=== PATIENT | female | born 1960 | race Caucasian/White ===

== ENCOUNTER 2024-07-24 06:24 | Day surgery (SDC) | payer OTHER, SELFPAY ==
[2024-07-18 13:50] VITALS: BMI 21.9
--- NOTE | 2024-07-23 22:46 | W.CON.GYNONC ---
Chief Complaint
-
abdominal wall mass
History of Present Illness
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
Oncology history:
March 06, 2021 ex lap JESUS/BSO low anterior resection omentectomy pelvic and periaortic lymph node dissection optimal tumor
debulking. 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
sigmoid colon and posterior cul�de�sac
Patient received chemotherapy with Taxol and carboplatin x 6 cycles, started niraparib maintenance
June 11, 2022, lower abdominal wall tumor implant, resected completely. Continued niraparib maintenance
Fall 2022, patient was diagnosed with progression of disease involving left lower quadrant pelvis as well as recurrent abdominal wall
tumor implant. She was treated with Gemzar, carboplatin and bevacizumab. After cycle 2 developed hypersensitivity reaction to
carboplatin. She received 3 cycles of carboplatin desensitization at [facility], however had anaphylactic reaction with the
last cycle.
Interval History
Patient reports overall to be doing well, denies any nausea vomiting fever chills. GI review of system is essentially negative. I note
that the patient is complaining of further irritation of skin in the suprapubic area secondary to tumor implant. She continues to work
full�time.
��������������������
October 12, 2023
Patient has met with Dr. Jabier Thacker and radiation oncology, she is starting radiation treatment to suprapubic subcutaneous
nodule as well as left lower quadrant nodule, 10 fractions are planned.
12/07/2023� Patient�has�completed�her�10�fractions�of�radiation�to�suprapubic�skin�and�subcutaneous�metastasis�as�well�as�left�lower�quadrant
metastasis.�She�has�been�doing�well�and�denies�any�nausea�vomiting�fever�chills�bladder�and�bowel�functions�are�within�normal limits.�She�did�experience�some�diarrhea�with�radiation�therapy. ������������������������ 02/08/24
This�patient�returns�back�to�the�office�for�follow�up,�she�is�doing�well�and�denies�any�nausea�vomiting�fever�chills,�she�continues�to
have�some�intermittent�diarrhea�secondary�to�side�effects�of�radiation�therapy.�She�has�been�seen�by�her�medical�oncologist�Dr. Morginstin�recently.
She�had�a�CT�chest�abdomen�and�pelvis�at�[facility],�the�left�lower�peritoneal�metastasis�appears�to�be�stable,�it�continues
to�measure�2.2�cm,�there�is�a�slight�enlargement�in�the�right�pelvic�sidewall�lymph�node�from�8�mm�to�13�mm�significance�of�which
is�unclear.�Abdominal�wall�subcutaneous�metastasis�is�1.9�cm�essentially�stable�in�size�but�it�shows�central�low�attenuation suggesting�treatment�effect. ����������������������������� 05/02/24
patient�returns�today�for�follow�up�She�is�doing�well,�no�complaints.�She�did�see�her�med/onc�Dr�Morginstin�yesterday�and�he�wrote
for�her�prescription�of�letazole.�She�did�have�a�recent�ct�scan�which�is�stable�.�She�is�did�for�a�[employer]�draw�but�is�having difficulty�scheduling.
07/09/24 Patient�presents�to�the�office�today�for�follow�up,�over�the�course�of�last�month�she�has�noted�increased�size�of�the�nodule�in�the
lower�abdomen�along�the�midline�just�above�mons�pubis.�Previously�she�had�radiation�in�this�area.�She�remains�on�letrozole�the area�has�started�just�having�some�discharge�and�bleeding
Allergies erythromycin�base,�Penicillins
Medications I
chlorthalidone�25�mg�tablet 1�p.o.�q.�day Y
letrozole�2.5�mg�tablet 1�p.o.�q.�day
losartan�100�mg�tablet 1�p.o.�q.�day s
pironolactone�25�mg�tablet 1�p.o.�q.�day
Social�History Former�Smoker.�Packs�per�day�1�ppd�.�Year�Quit�2021.�Approximate�years�smoked�40. Marital�Status:�Patient�is�single Gynecological�History Age�at�Menarche�12�years.�Age�at�menopause:�48�years.�Patient�reports�0�pregnancies.
No�history�of�hormone�replacement�therapy.
Medical History
Allergies
Allergies reflect when allergies were last updated in [facility].
carboplatin Allergy (Verified 07/19/24 10:33)
Anaphylaxis
erythromycin base Allergy (Verified 07/19/24 10:33)
Hives
Penicillins Allergy (Verified 07/23/24 18:07)
Keflex is ok
pollen extracts Allergy (Verified 07/19/24 10:33)
seasonal allergies
Physical Exam
Physical Exam
Pelvic�Examination: External�normal�labia,�urethra,�anus.� Vagina:�Normal�mucosa. Adnexa:�No�pelvic�mass.� RVE:�no�masses�or�nodularity General:�Well�developed,�well�nourished�patient.�In�no�acute�distress. Head:�Atraumatic�and�normocephalic.
Eyes:�EOMI.�Sclerae�are�anicteric. Ears,�Nose,�Throat,�and�Mouth:�Normal�oral�mucosa�and�oropharynx. Neck:�No�thyromegaly.�No�cervical�lymphadenopathy. Lungs:�Clear�to�auscultation.�Good�air�movement�bilaterally.
Cardiac:�Regular�rate.�Regular�rhythm.�No�murmurs�appreciated. Abdomen:�Abdomen�is�soft.�Non�tender�to�palpation.�Non�distended.� There�is�a�1�tx�2�cm�palpable�mobile�nodule�in�the�subcutaneous�tissue�with�it�is�raised�and�erythematous�in�appearance
Palpation�of�the�abdomen�also�reveals�a�2�cm�nodule�deep�in�the�left�retroperitoneum Extremities:�No�edema. Hematologic/Lymphatic:�No�palpable�lymphadenopathy. Musculoskeletal:�Normal�range�of�motion.�Strength�and�Tone�are�normal.
Skin:Non�jaundiced.�No�petechia.�No�purpura. Neurologic:�Speech�is�fluent.�Normal�gait�and�station.�Cranial�nerves�intact.
Impression / Plan
-
Patient appears to have progression of disease in the skin just above mons pubis
She is scheduled to undergo CT chest abdomen and pelvis tomorrow at [facility]
I am recommending excision of this nodule using an elliptical low transverse incision removing skin and subcutaneous tissue down
to the level of fascia. I have requested her to see Dr. Kraft in plastic surgery, I am hoping that he could assist in closing the skin
incision using a mini abdominoplasty
Obviously if she has progression of disease in other sites we would probably recommend systemic therapy otherwise
She is seeing plastic surgery later today
She has also seen radiation oncology for possible localized treatment as an alternative option
I told her that I will review the CT scan and discuss plans going forward
Patient informs me that her crab picker has recently evaluated her and is concerned about discordant blood pressure into arms. He
is suspecting stenosis and narrowing of subclavian artery. His CT of chest as an angiogram has been ordered and dose will be done
at the same time we will await their recommendation
[2024-07-24] VITALS (8 sets, daily range): BP systolic 112–149; BP diastolic 63–76; BMI 21.9
[2024-07-24] MEDS: CELEBREX 200 MG PO (10:08)
[2024-07-24] MEDS: TYLENOL 1000 MG PO (10:08)
[2024-07-24] MEDS: NEURONTIN 300 MG PO (10:09)
--- NOTE | 2024-07-24 10:12 | PTCARENOTE ---
Patient had a small amount of cream in her coffee this am and stopped drinking it at 0630. Dr. Olivia made aware. No further orders.
--- NOTE | 2024-07-24 10:54 | SUR.OPER ---
Patient overheard telling her brother that staff was pushing her and throwing her belongings around. Patient was not pushed or touched with the exception for inserting her IV line. When patient arrived RN was tyding up patient belongings and put her
shoes which were in a plastic bag into the patients white belonging bag. Patients belongings were being labeled and put into the bag because the belongings were all over the chair and not put away by patient. Asked patient to take her iwatch off and
she angrily removed it and put it on the other wrist. After tying patients bag shut she shouted at RN saying that she does not want her belongings moved and touched. Patient stated that preadmissions said that her watch should go into her shoe.
Apologized to patient and she angrily said again that she felt like staff was coming at her (2 staff members only in room with patient.) Will monitor patient.
[2024-07-24] MEDS: HEPARIN 5000 UNITS SC (11:50)
[2024-07-24] MEDS: NORMOSOL-R/PLASMALYTE-A 1000 IV (11:51)
--- NOTE | 2024-07-24 14:07 | W.IMMPOSTOP ---
Surgical Immed Post Op Note
-
Primary Surgeon: TYLOR Kraft MD
Assisting Surgeon:
Pre-op Diagnosis: Recurrent ovarian cancer
Post-op Diagnosis: Same
Procedure Performed: Excision of skin lesion for margins, adjacent tissue transfer for lower abdominal wall reconstruction
Anesthesia Type: General
Specimen / Cultures: Skin margins
Estimated Blood Loss: 15 cc
Complications: None
Operative Findings: As expected
--- NOTE | 2024-07-24 14:07 | OR.RPT ---
Operative Report
Operative Report
Date of Service: 07/24/24
Surgeon: TYLOR Kraft MD
Preoperative diagnosis: Recurrent ovarian cancer
Postoperative diagnosis: Same
Procedure:
1. Adjacent tissue transfer, trunk, 25 x 20 cm�
2. Skin excision, malignant, 20 cm
Anesthesia: General
Specimens: Abdominal skin margins
Complications: None
EBL: 15 cc
Indication for procedure: Patient is a 64-year-old female with a history of open recurrent ovarian cancer. She had previously undergone radiation and resection. She developed a recurrence in the skin limited to superficial to the fascia. A plan
was made by her surgical oncologist in Dr. Turcios to resect the tumor. A large defect was anticipated. He asked for my assistance in closing this abdominal defect. A plan was made to reconstruct the defect via adjacent tissue transfer using a
supraumbilical skin flap. Risk of the procedure including wound healing issues, umbilical , hematoma, seroma were reviewed at length. Patient consented accordingly and desire to proceed
Procedure detail: Patient was identified preoperatively and the surgical site was confirmed to be the anterior abdomen. All questions were answered and consents were confirmed. Patient was taken back to the operative room placed supine on the
table. Anesthesia was induced and patient was prepped and draped in usual sterile fashion using ChloraPrep solution. Timeout for patient safety was performed was confirmed that preoperative antibiotics have been administered and bilateral SCDs
were placed. Procedure began with Dr. Malone marking out the margins for the tumor resection of the lower abdominal wall. His op report will be dictated separately. Upon conclusion of his resection, I started my portion of the procedure. The
defect was measured and had a width of over 10 cm. Additional margins were then resected to freshen the wound edges and provide another pathological sample for margins. This was over an area of 20 cm along the wound margin. As such a large
adjacent tissue transfer was planned. Due to a prior midline laparotomy scar dissection needed to proceed along the abdominal wall fascia to the level of the xiphoid and costal margin. The umbilicus was floated and as such transected at the base
of the fascia. The resultant defect was oversewn with 2-0 Vicryl's. The area of the adjacent tissue transfer measured 20 cm x 25 cm. Following sufficient flap mobilization to close the lower abdominal wall defect backcut is needed to be performed
and these extended to the ASIS bilaterally. Meticulous hemostasis was then ensured. Bilateral tap blocks were performed with dilute Marcaine. A LISBETH drain was left on the anterior fascia. Sutured in place with a 2-0 Prolene. Patient was then
flexed at the waist and closure was ensured to be without tension. A series of 2-0 Vicryl's were placed in Rui's. Deep dermis was closed with the INSORB stapler and a 3-0 Monocryl was run superficially. Patient tolerated procedure well was
performed out complication all counts were correct. She was extubated taken the PACU for further care.
--- NOTE | 2024-07-24 15:06 | OR.RPT ---
Operative Report
Operative Report
Date of procedure: July 24, 2024
Preoperative diagnosis: Recurrent ovarian cancer with skin metastasis postoperative diagnosis: Same
procedure: Excision of 15 cm skin and subcutaneous tissue lower abdomen
Surgeon: Myke Turcios
Assist: Evan Barrera PA-C
Anesthesia: General LMA intubation
Specimen lower abdominal skin and subcutaneous tissue with suture at 12:00 midline
Complications: None
Estimated blood loss less than 25 cc
Procedure in detail: This patient was taken to the operating room placed in supine position. General anesthesia was administered she was intubated without any difficulty. She was placed in supine position. Hair involving upper genital region was
clipped. Under sterile circumstance Blakely catheter was placed with bladder drainage. The abdomen and upper thighs and mons pubis was prepped with ChloraPrep. Approximately 2 to 3 cm margin was designated overlying a erythematous raised ulcerated
lesion involving lower abdominal skin. I used the electrocautery to remove an elliptical portion of the skin and this was taken down to the level of fascia. We used electrocautery as well as small jaw vessel sealer to seal and divide blood vessels
to this portion of the skin and subcutaneous tissue and the entire specimen was lifted off the fascia. At this point I handed the case over to Dr. Kraft in plastic surgery, who performed closure of the defect. Counts of laps instruments and
needle was correct x 2. I was present and scrubbed for entire procedure as dictated above
Disposition: To PACU, alert awake stable
== END 2024-07-24 16:07 | disposition home or self-care (01) ==
LOC: SDS 06:24
PROVIDERS: ATTENDING PHYSICIAN Obstetrics & Gynecology Gynecologic Oncology; FAMILY PHYSICIAN Family Medicine; OTHER PHYSICIAN Surgery Plastic and Reconstructive Surgery
DX: C79.2 Secondary malignant neoplasm of skin (principal); C56.2 Malignant neoplasm of left ovary
CPT/HCPCS: 11606; 13101; 88307; 36415; 86850; 86900; 86901; 88341; 88342; C1729; C1776

== ENCOUNTER 2024-10-09 12:09 | Inpatient (IN) | payer OTHER, SELFPAY ==
[2024-10-08 16:15] VITALS: BMI 19.4
[2024-10-08 16:21] VITALS: BP 96/66
[2024-10-08 16:43] LABS: % Basophils 0.3 % (0-2); % Eosinophils 0.2 % (0-6); % Immature Granulocytes 0.6 % (0-0.5); % Lymphocytes 3.7 % (20.5-51.1); % Monocytes 5.3 % (1.7-9.3); % Neutrophils 89.9 % (42.2-75.2); Absolute Basophils 0.1 10^3/uL (0-0.2); Absolute Immature Granulocytes 0.1 10^3/uL (0-0.05); Absolute Lymphocytes 0.7 10^3/uL (1.2-3.4); Absolute Neutrophils 16.9 10^3/uL (1.4-6.5); Hematocrit 38.7 % (37.0-47.0); Hemoglobin 13.2 g/dL (12.0-16.0); Mean Corp Hgb Conc. 34.1 g/dL (33.0-37.0); Mean Corpuscular Hgb 32.4 pg (27.0-31.0); Mean Corpuscular Volume 94.9 fL (81.0-99.0); Nucleated Red Blood Cells % 0 %; Platelet Count 429 10^3/uL (130-400); Red Blood Cell Count 4.08 10^6/uL (4.20-5.40); Red Cell Dist. Width 12.7 % (11.5-14.5); White Blood Cell Count 18.8 10^3/uL (4.8-10.8)
[2024-10-08 17:08] LABS: ALT (SGPT) 16 U/L (0-35); AST (SGOT) 33 U/L (14-36); Albumin 4.3 g/dl (3.5-5.0); Alkaline Phosphatase 105 U/L (38-126); Blood Urea Nitrogen 23 mg/dl (7-17); Calcium 10.1 mg/dl (8.4-10.2); Carbon Dioxide 25 mmol/L (22-30); Chloride 102 mmol/L (98-107); Glucose 137 mg/dl (70-99); Lipase 70 U/L (23-300); Potassium 3.9 mmol/L (3.5-5.1); Sodium 134 mmol/L (135-145); Total Bilirubin 0.5 mg/dl (0.2-1.3); Total Protein 6.7 g/dl (6.3-8.2); eGFR > 60.00
--- NOTE | 2024-10-08 21:02 | ED.GENMED ---
History of Present Illness
<Brionna Tee PA-C - Last Filed: 10/09/24 02:27>
General
Chief Complaint: Abdominal Symptoms
Source: patient
Exam Limitations: none
Time Seen by Provider: 10/08/24 21:02
Nursing documentation reviewed up to this point in time: agreed with
History of Present Illness
History of Present Illness:
TIME OF INITIAL EVALUATION
- 21:34
REVIEW OF OLD RECORDS
- Operative report from 07/24/2024 after skin excision for metastatic spread of ovarian cancer�no complications
CHIEF COMPLAINT(S)
Abdominal distension with associated nausea and vomiting.
HISTORY OF PRESENT ILLNESS
The patient is a 64-year-old female with a history of ovarian cancer status post multiple surgeries including bowel resection in February 2021, who presents with abdominal distension over the past week and new onset nausea and vomiting starting
today. She previously underwent recent surgery in July for skin excision related to recurrent ovarian cancer, with a plastic surgeon closing the wound.
The patient had a follow-up appoint with her plastic surgeon today who was concerned that she may have a bowel obstruction and referred her to the emergency department.
She has experienced bowel changes with smaller than usual, non-diarrheal stools today, associated with abdominal pain, particularly on palpation in the lower abdomen. Patient did have normal food intake yesterday without immediate emesis per she
denies fevers, chills, dysuria, or constipation. She denies any chest pain or shortness of breath the patient notes generalized weakness in her extremities, attributing this to possible dehydration.
CHRONIC MEDICAL CONDITIONS SIGNIFICANTLY AFFECTING CARE
Chronic conditions affecting care: Recurrent ovarian cancer, history of bowel resection, history of blood clot, and history of reaction to chemotherapy.
REVIEW OF SYSTEMS
- Gastrointestinal: Abdominal distension, nausea, vomiting, change in stool caliber, abdominal pain.
- General: Weakness in extremities, recent inability to tolerate oral intake.
- Cardiorespiratory: No reported palpitations or issues with urination.
PHYSICAL EXAM
- Vitals: BP soft. Afebrile
- General: Well appearing in no distress
- HEENT: Moist oral mucosa
- Cardiovascular: No murmurs, normal heart rate, regular rhythm, No chest wall tenderness
- Pulmonary: No respiratory distress, breath sounds are clear and equal
- Abdomen: Soft with diffuse tenderness. Mild distention of lower abdomen. No rebound tenderness or guarding.
- Neurologic: Excellent strength all extremities, no coordination deficits
- Psychiatric: Appropriate mental status, normal insight and judgement
- Extremities: Nontender, no edema, moves all extremities equally
- Skin: No rash, no lesions
PLAN
-Will check lactic acid and CT scan with IV/oral contrast to assess abdominal pathologies including obstruction or other complications
- Administer intravenous fluids.
- Provide analgesia for abdominal pain.
DIFFERENTIAL DIAGNOSIS
The Differential Diagnosis includes, in no particular order and is not limited to:
1. Abdominal obstruction
2. Adhesions leading to intestinal obstruction
3. Neoplastic recurrence or spread
4. Post-surgical complications
5. Vascular abnormalities, such as mesenteric ischemia
6. Gastroenteritis
7. Dehydration and electrolyte imbalance
8. Ileus secondary to recent surgery
9. Gastrointestinal hemorrhage or perforation
10. Inflammatory bowel condition
RADIOLOGY
- CT abdomen/pelvis shows no evidence of acute infectious process or bowel obstruction however does note progression of disease as well as large seroma abdominal wall without any evidence of infection
LABS
- CBC reveals leukocytosis of 18.8 with left shift. Chemistry shows evidence of mild dehydration given very mild hyponatremia and elevation in BUN. Lactic acid normal.
UPDATE
- On reassessment�patient states she has developed a headache which 'only Motrin will cure'. Did discuss that we already gave patient a dose of IV Toradol and recommended Tylenol although she states this will not help. Her BP remains soft however
she appears well. Will give another 500 bolus of IV fluids pending CT scan and dose of Tylenol as she declined any medication for headache management. She remains afebrile.
- Update 2 AM: CT report shows no acute infectious process or evidence of obstruction however does note progression of disease and large seroma of abdominal wall. On reassessment�patient's pain has improved although she remains hypotensive despite
1.5 L of IV fluids. Concern for underlying infectious process given persistent hypotension. Feel patient to be admitted for IV antibiotics and further fluid resuscitation and monitoring. Patient excepted to hospitalist service in stable condition.
SUMMARY OF ENCOUNTER
The patient is a 64-year-old female who presented with one week of abdominal distension and diffuse abdominal pain, accompanied by new onset nausea and vomiting. She has a history of ovarian cancer with a recent surgery involving skin excision from
a metastatic region on the abdomen. During the emergency department visit, her blood pressure remained low despite receiving a liter and a half of IV fluids. Laboratory work revealed an elevated white blood cell count with no apparent reason to
explain the elevation, raising concern for an underlying infectious process. A CT scan showed disease progression and a large seroma at the incision site, but no bowel obstruction or acute infectious process in the abdomen.
DISPOSITION
The patient is to be admitted to the hospital for further management.
ASSESSMENT
Presentation with abdominal distension, nausea, vomiting, and elevated white blood cell count with persistent hypotension.
EMERGENCY TREATMENTS ADMINISTERED
The patient received multiple rounds of intravenous fluids, totaling a liter and a half.
PLAN
Admit for further evaluation and management, including IV antibiotics to cover potential infectious sources and continued IV fluid administration.
MEDICAL DECISION MAKING
Chronic conditions affecting care: Recurrent ovarian cancer, recent bowel resection. Differential diagnoses considered included underlying infection, bowel obstruction, or seroma-related complications.
INDEPENDENT REVIEW OF LABS AND INTERPRETATION OF TESTS
My independent review of the complete blood count shows an elevated white blood cell count, raising suspicion for an infectious process.
PATHOLOGIES TO CONSIDER
- Sepsis due to the elevated white blood cell count and hypotension.
- Bowel obstruction or perforation, although imaging did not show signs of obstruction.
Review of Systems
<Brionna Tee PA-C - Last Filed: 10/09/24 02:27>
Review of Systems
Allergies reviewed?: Yes
All Other Systems: ROS reviewed and negative except as documented in HPI and ROS
Phy Exam
<Brionna Tee PA-C - Last Filed: 10/09/24 02:27>
Physical Exam
Physical Exam:
See HPI
Course
<Brionna Tee PA-C - Last Filed: 10/09/24 02:27>
Orders/Labs/Results
Orders:
Orders
10/08/24 16:31
Complete Blood Count/With Diff Urgent
Comprehensive Metabolic Panel Urgent
Lipase Urgent
10/08/24 21:35
Urinalysis Reflex To Culture Urgent
Date Specimen was Collected: 10/09/24
Time Specimen was Collected: 02:13
0.9% Sodium Chloride 1000 ml [Nss] 1,000 ml IV BOLUS
Ketorolac [Toradol] 15 mg IV NOW STA
10/08/24 21:41
Iohexol [Omnipaque] See Protocol PO NOW STA
10/08/24 22:07
Lactic Acid Q4H
Comment: CANCEL 2nd LACTIC ACID IF 1st LACTIC ACID IS LESS THAN 2
10/09/24
CT Abd/pel W Iv And Oral Contr Urgent
Comment: hx ovarian CA and partial bowel resection
Reason For Exam: Diffuse abdominal pain, distention, N/V
10/09/24 00:49
0.9% Sodium Chloride 500 ml [Nss] 500 ml IV BOLUS
Ibuprofen [Motrin] 400 mg PO NOW STA
10/09/24 02:11
0.9% Sodium Chloride 1000 ml [Nss] 1,000 ml IV BOLUS
Cefepime HCl [Maxipime] 2,000 mg IV NOW STA
10/09/24 02:15
Blood Culture Q30M
MEGAN Source: Blood/Venous
Specimen Description:
10/09/24 02:45
Blood Culture Q30M
MEGAN Source: Blood/Venous
Specimen Description:
Abnormal Lab Results
10/08/24
16:31
WBC 18.8 H 10^3/uL
(4.8-10.8)
RBC 4.08 L 10^6/uL
(4.20-5.40)
MCH 32.4 H pg
(27.0-31.0)
Plt Count 429 H 10^3/uL
(130-400)
Abs Immat Gran (auto) 0.1 H 10^3/uL
(0-0.05)
Absolute Neuts (auto) 16.9 H 10^3/uL
(1.4-6.5)
Absolute Lymphs (auto) 0.7 L 10^3/uL
(1.2-3.4)
Absolute Monos (auto) 1.0 H 10^3/uL
(0.1-0.6)
Immature Gran % 0.6 H %
(0-0.5)
Neutrophils % 89.9 H %
(42.2-75.2)
Lymphocytes % 3.7 L %
(20.5-51.1)
Sodium 134 L mmol/L
(135-145)
BUN 23 H mg/dl
(7-17)
Glucose 137 H mg/dl
(70-99)
10/08/24 16:31
10/08/24 16:31
Vital Signs
Initial and Last Documented VS:
Initial Vital Signs
Pulse Resp BP Pulse Ox
86 20 96/66 100
10/08/24 16:21 10/08/24 16:21 10/08/24 16:21 10/08/24 16:21
Last Documented Vital Signs
Temp Pulse Resp BP Pulse Ox
97.6 F 74 18 85/71 96
10/09/24 01:37 10/09/24 01:58 10/09/24 01:58 10/09/24 01:50 10/09/24 01:51
<Kecia Vargas, DO - Last Filed: 10/09/24 02:24>
Orders/Labs/Results
Orders:
Orders
10/08/24 16:31
Complete Blood Count/With Diff Urgent
Comprehensive Metabolic Panel Urgent
Lipase Urgent
10/08/24 21:35
Urinalysis Reflex To Culture Urgent
Date Specimen was Collected: 10/09/24
Time Specimen was Collected: 02:13
0.9% Sodium Chloride 1000 ml [Nss] 1,000 ml IV BOLUS
Ketorolac [Toradol] 15 mg IV NOW STA
10/08/24 21:41
Iohexol [Omnipaque] See Protocol PO NOW STA
10/08/24 22:07
Lactic Acid Q4H
Comment: CANCEL 2nd LACTIC ACID IF 1st LACTIC ACID IS LESS THAN 2
10/09/24
CT Abd/pel W Iv And Oral Contr Urgent
Comment: hx ovarian CA and partial bowel resection
Reason For Exam: Diffuse abdominal pain, distention, N/V
10/09/24 00:49
0.9% Sodium Chloride 500 ml [Nss] 500 ml IV BOLUS
Ibuprofen [Motrin] 400 mg PO NOW STA
10/09/24 02:11
0.9% Sodium Chloride 1000 ml [Nss] 1,000 ml IV BOLUS
Cefepime HCl [Maxipime] 2,000 mg IV NOW STA
10/09/24 02:15
Blood Culture Q30M
MEGAN Source: Blood/Venous
Specimen Description:
10/09/24 02:45
Blood Culture Q30M
MEGAN Source: Blood/Venous
Specimen Description:
Abnormal Lab Results
10/08/24
16:31
WBC 18.8 H 10^3/uL
(4.8-10.8)
RBC 4.08 L 10^6/uL
(4.20-5.40)
MCH 32.4 H pg
(27.0-31.0)
Plt Count 429 H 10^3/uL
(130-400)
Abs Immat Gran (auto) 0.1 H 10^3/uL
(0-0.05)
Absolute Neuts (auto) 16.9 H 10^3/uL
(1.4-6.5)
Absolute Lymphs (auto) 0.7 L 10^3/uL
(1.2-3.4)
Absolute Monos (auto) 1.0 H 10^3/uL
(0.1-0.6)
Immature Gran % 0.6 H %
(0-0.5)
Neutrophils % 89.9 H %
(42.2-75.2)
Lymphocytes % 3.7 L %
(20.5-51.1)
Sodium 134 L mmol/L
(135-145)
BUN 23 H mg/dl
(7-17)
Glucose 137 H mg/dl
(70-99)
10/08/24 16:31
10/08/24 16:31
Vital Signs
Initial and Last Documented VS:
Initial Vital Signs
Pulse Resp BP Pulse Ox
86 20 96/66 100
10/08/24 16:21 10/08/24 16:21 10/08/24 16:21 10/08/24 16:21
Last Documented Vital Signs
Temp Pulse Resp BP Pulse Ox
97.6 F 74 18 85/71 96
10/09/24 01:37 10/09/24 01:58 10/09/24 01:58 10/09/24 01:50 10/09/24 01:51
<Brionna Tee PA-C - Last Filed: 10/09/24 02:27>
*Pulse Oximetry
SaO2: 100
Oxygen Mode of Delivery: Room air
Patient hypoxic: no
*EKG
Interpreted by ED Provider?: NA
*Mechanical Intern Interpretation
Rate: Mechanical Intern- N/A
*Critical Care Note
Total Time (30-74mins, 75-104mins- exclusive of procedures): Not Applicable
ED Attending Note
<Brionna Tee PA-C - Last Filed: 10/09/24 02:27>
-
Portions of this chart may have been created with voice recognition software.� Occasional wrong word or��sound alike� substitutions may have occurred due to the inherent limitations of voice recognition software.
<Kecia Vargas DO - Last Filed: 10/09/24 02:24>
ED Attending Note
Patient seen and examined by attending physician: Yes
I performed a history and physical exam of patient and discussed management with resident, I reviewed resident's note and agree with documented findings and plan of care.: Yes
ED Attending Note:
64-year-old woman with history of ovarian cancer status post hysterectomy, bowel resection February 2021. More recently underwent lower abdominal skin excision July 24 of this year for recurrent ovarian carcinoma metastatic to the skin. Other than
surgical excision she has not been started on chemotherapy nor any other cancer treatment.
She presents with 1 week history of intermittent nausea, vomiting, lower abdominal pain, fullness and generalized weakness. She has not noticed a fever. No fall, no cough. She does note moderate headache but denies neck pain.
She remains afebrile in the ED but noted to be moderately hypotensive without tachycardia.
64-year-old woman appears her stated age, bright and alert, pleasant, appears in no acute distress.
Neck is supple, nontender, without meningismus.
Lungs are clear to auscultation.
Abdomen is soft, moderate fullness to the lower abdomen, soft with mild local tenderness to palpation. Normoactive bowel sounds.
Labs remarkable for moderately elevated white blood cell count of 18.8. Left shift. Chemistries show mildly elevated BUN with normal creatinine 0.9. Normal lactic acid of 1.3. Urinalysis is pending.
CT abdomen pelvis shows large seroma anterior abdominal wall, mild constipation but otherwise no bowel obstruction, no acute intra-abdominal findings.
Continued hypotension despite 1.5 L normal saline combined with markedly elevated white blood cell count concern for occult infectious process, occult sepsis.
Will check blood cultures, initiate IV antibiotics and admit to hospital service. Will continue IV fluids.
Discharge Plan
Departure
Patient Disposition: Admit
Date of Disposition: 10/09/24
Time of Disposition: 02:13
Presentation/result/management discussed w/ accepting MD/DO: Hospitalist
Discharge Problem:
Abdominal pain, Abdominal wall seroma, Hypotension
Prescriptions:
No Action
multivitamin Tablet
1 tab PO DAILY
chlorthalidone 25 mg Tablet
25 mg PO DAILY
spironolactone 25 mg Tablet
25 mg PO DAILY
ibuprofen 400 mg Tablet
400 mg PO Q6H PRN (Reason: pain)
furosemide 20 mg Tablet
20 mg PO DAILY PRN (Reason: edema)
letrozole 2.5 mg Tablet
2.5 mg PO DAILY
losartan 100 mg Tablet
100 mg PO DAILY
melatonin 5 mg Tablet
5 mg PO HS PRN (Reason: sleep)
loperamide 2 mg Capsule
2 mg PO Q4H PRN (Reason: constipation)
Colace 50 mg Capsule
50 mg PO DAILY PRN (Reason: constipation)
Fluticasone Nasal [place]
Referrals:
Daylin Christensen DO [Family Provider, Family Practice]
Interventions
Interventions:
*Risk Screen - Suicide Last Done: 10/08/24 16:24
*General Assessment Last Done: 10/08/24 16:24
*Neglect/Abuse Screening Last Done: 10/08/24 16:24
*ED COVID-19 Vaccine History Last Done: 10/09/24 00:38
WA-Oqrczn-Yaiiytjhho Assessment Last Done: 10/09/24 00:37
Discharge Date and Time
Print Language: TELUGU
[2024-10-08 21:33] VITALS: BP 95/74
[2024-10-08] MEDS: OMNIPAQUE 50 ML PO (22:19)
[2024-10-08] MEDS: NSS 1000 IV (22:19)
[2024-10-08] MEDS: TORADOL 15 MG IV (22:19)
[2024-10-08 22:37] LABS: Lactic Acid 1.3 mmol/L (0.7-2.0)
[2024-10-09] VITALS (16 sets, daily range): BP systolic 80–102; BP diastolic 49–75; PULSE 86–93; BMI 22.7
[2024-10-09] MEDS: NSS 500 IV (01:17)
[2024-10-09] MEDS: MAXIPIME 2000 MG IV (02:30)
[2024-10-09] MEDS: NSS 1000 IV ×2 (02:31→05:14)
[2024-10-09] MEDS: FLUSH (NSS) 1 FLUSH IV (02:32)
[2024-10-09 02:39] LABS: Urine Albumin 2+ (Neg - Trace); Urine Bilirubin Negative (Negative); Urine Character Clear (Clear); Urine Color Yellow; Urine Glucose Negative (Negative); Urine Ketone Negative (Negative); Urine Leukocyte Negative (Negative); Urine Nitrite Negative (Negative); Urine Occult Blood Negative (Negative); Urine Urobilinogen Negative (Neg - 1+)
--- NOTE | 2024-10-09 02:51 | HPS.HSE ---
Family Physician
-
Family Physician: Daylin Christensen
Chief Complaint
-
Abdominal pain
History of Present Illness
This is a 64-year-old female with past medical history of metastatic ovarian cancer status post chemotherapy with Taxol and carboplatin and on status post niraparib maintenance, had lower abdominal wall tumor implant that was resected in 2022 and
progression of disease found later in 2023 with left lower quadrant and pelvis as well as recurrent abdominal wall tumor implants for which she received [place] echocardiogram bevacizumab interrupted by percentage of reaction to carboplatin, who
recently had abdominal wall /Skin excision of malignant, 20 cm mass in July now presents to the emergency department with abdominal distention and discomfort.
Patient reports that ever since his surgery and over the last few days she has noticed increasing abdominal fullness and bloating. Discussed causes some nausea and decreased p.o. intake. She has more overall lower pelvic discomfort than pain that
was nonradiating. Patient felt that she was having a fluid collection and went to see a plastic surgeon who has drained seroma in the past. He said that the patient will have a bowel obstruction and show should be evaluated in the emergency
department. Patient does come into the emergency department to be evaluated for bowel obstruction.
She has not had any fevers or chills. She denies having any diarrhea. She denies having copious amount of vomiting but reports low appetite. She reports no recent changes in blood pressure medications, losartan was decreased a few months ago for
low blood pressures.
In the emergency department patient's blood pressure was found to be low ranging from 80-95/49-74, pulse was 74, she was satting 98% on room air. She was afebrile with a temp of 97.6.
He has leukocytosis to 18.8, hemoglobin of 13.4 and a peak of 429. Electrolytes were normal. BUN/creatinine were normal. Glucose was normal. Lactic acid was normal.
LFTs unremarkable lipase normal. UA was completely normal. CT of the abdomen pelvis showing large loculated simple collection in the anterior abdominal wall suggestive of a seroma measuring 10.7 x 5 x 18 cm.
Medical History
Past Medical History
Past Medical History: Reports Other
Additional Past Medical History:
Metastatic ovarian cancer status post multiple surgeries
Hypertension
Past Surgical History: Reports Gynocological (Total abdominal hysterectomy)
Social History
Tobacco: Former Smoker
Alcohol: Occasional
Drug: None
Living: Alone
Family History
Family History: Not pertinent
Allergies / Home Medications
Allergies reflects when Allergies were last updated in [facility].
Home Medications with original date entered in [facility]
Allergy/Medication List:
Allergies
Allergy/AdvReac Type Severity Reaction Status Date / Time
carboplatin Allergy Anaphylaxis Verified 07/24/24 09:58
erythromycin base Allergy Hives Verified 07/24/24 09:58
Penicillins Allergy Keflex is Verified 07/24/24 09:58
ok
pollen extracts Allergy seasonal Verified 07/24/24 09:58
allergies
Home Medications
chlorthalidone 25 mg tablet 25 mg PO DAILY 07/19/24
ibuprofen 400 mg tablet 400 mg PO Q6H PRN pain 07/19/24
letrozole 2.5 mg tablet 2.5 mg PO DAILY 07/19/24
losartan 100 mg tablet 50 mg PO DAILY 07/19/24
melatonin 5 mg tablet 5 mg PO HS PRN sleep 07/19/24
multivitamin 1 tab PO DAILY 07/19/24
spironolactone 25 mg tablet 25 mg PO DAILY 07/19/24
Review of Systems
-
Constitutional: Reports No Symptoms
EENT: Reports No Symptoms
Respiratory: Reports No Symptoms
Cardiac: Reports No Symptoms
Abdomen/GI: Reports Abdominal Pain
: Reports No Symptoms
Musculoskeletal: Reports No Symptoms
Skin: Reports No Symptoms
Neurological: Reports No Symptoms
Endocrine: Reports No Symptoms
Hematologic/Lymphatic: Reports No Symptoms
Psych: Reports No Symptoms
Physical Exam
Vital Signs
Vital Signs
Temp Pulse Resp BP Pulse Ox
97.6 F 74 18 95/75 94
10/09/24 01:37 10/09/24 01:58 10/09/24 01:58 10/09/24 02:00 10/09/24 02:00
Physical Exam
General: Well Developed, Well Nourished and No Apparent Distress
HEENT: NormoCephalic, Moist mucous membranes and Atraumatic
Respiratory: Clear
Cardiac: S1/S2 and Regular Rhythm; No Murmur or Rub
GI: Soft, Non Tender, Non Distended and Normal Bowel Sounds; No Organomegaly
Rectal: Deferred by Provider
Musculoskeletal: No Clubbing, No Cyanosis and No Edema
Skin: No Rash
Neuro: Nonfocal/grossly intact
Laboratory Results
-
10/08/24 16:31
10/08/24 16:31
Laboratory Results
Lactic Acid Cancelled 10/09/24 01:45
Total Bilirubin 0.5 mg/dl (0.2-1.3) 10/08/24 16:31
AST 33 U/L (14-36) 10/08/24 16:31
ALT 16 U/L (0-35) 10/08/24 16:31
Alkaline Phosphatase 105 U/L (38-126) 10/08/24 16:31
Lipase 70 U/L (23-300) 10/08/24 16:31
Data Reviewed
-
CT Scan: Report Reviewed by me
Lab Data: Labs Reviewed by me
Old Records: Reviewed
Impression/Plan
-
IMPRESSION:
64-year-old female with past medical history of ovarian cancer with abdominal wall med/implants status post recent surgery with development of abdominal fullness for which she was seen by plastic surgery and sent to the emergency department to rule
out a bowel obstruction. In the emergency department she was found to be relatively hypotensive although her maps have been greater than 65 and current blood pressure is 95/60. She denies feeling dizzy or lightheaded. She reports only headache.
He has not had any fevers or chills. She is found to be have an elevated leukocytosis but no other signs of acute infection. The CT scan is consistent with a rather large seroma likely the etiology of abdominal fullness and discomfort with
decreased p.o. intake and subsequent mild dehydration.
PLAN:
Hypotension -given leukocytosis current episode of right eye infection but there is no obvious source of infection. Lactic acid is negative.
- Admit to telemetry observation
- Blood cultures
- Started on cefepime, will continue for now pending results of blood culture
-If patient is afebrile in 24 hours and blood pressure is stable can DC antibiotics
-Continue IV fluids
- Hold losartan and chlorthalidone for now
Intra-abdominal fluid collection�hemoglobin stable likely seroma no signs of blood loss
-Consult to plastics, did not notify has no acute intervention overnight
-Antiemetics and pain control
DVT prophylaxis�Lovenox subcu
CODE STATUS�full code
[2024-10-09 03:05] LABS: Urine Red Blood Cell None Seen /HPF (0-2); Urine Squamous Cell 26-30 /LPF (Few); Urine White Cell 0-2 /HPF (0-5)
[2024-10-09] MEDS: REGLAN 10 MG IV (03:55)
--- NOTE | 2024-10-09 05:31 | PTCARENOTE ---
Pt transported from ED via stretcher. Pt independent from stretcher to bed. Vital signs obtained and stable, TELE initiated. Pt AAOX3, oriented to room. Pleasant and cooperative.
[2024-10-09 06:58] LABS: Hematocrit 33.2 % (37.0-47.0); Hemoglobin 11.4 g/dL (12.0-16.0); Mean Corp Hgb Conc. 34.3 g/dL (33.0-37.0); Mean Corpuscular Hgb 32.2 pg (27.0-31.0); Mean Corpuscular Volume 93.8 fL (81.0-99.0); Mean Platelet Volume 9.4 fL (7.4-10.4); Platelet Count 339 10^3/uL (130-400); Red Blood Cell Count 3.54 10^6/uL (4.20-5.40); Red Cell Dist. Width 12.8 % (11.5-14.5); White Blood Cell Count 14.6 10^3/uL (4.8-10.8)
[2024-10-09 07:08] LABS: Blood Urea Nitrogen 23 mg/dl (7-17); Calcium 8.4 mg/dl (8.4-10.2); Carbon Dioxide 20 mmol/L (22-30); Chloride 106 mmol/L (98-107); Estimated Creatinine Clearance 59 ml/min; Glucose 127 mg/dl (70-99); Potassium 3.9 mmol/L (3.5-5.1); Sodium 132 mmol/L (135-145); eGFR > 60.00
[2024-10-09] MEDS: STERILE WATER FOR INJECTION 10 ML IV ×3 (08:09→20:55)
[2024-10-09] MEDS: MAXIPIME 1000 MG IV ×3 (08:10→20:55)
[2024-10-09] MEDS: FEMARA 2.5 MG PO (08:10)
[2024-10-09] MEDS: THERAGRAN 1 TABLET PO (08:10)
--- NOTE | 2024-10-09 08:10 | PHA.VAN.IN ---
Assessment
- Assessment
Renal Function: Appears similar to baseline
Concomitant Antimicrobials: cefepime
AUC Dosing Plan
- Dosing Variables
Dosing Weight (kg): 58
Dosing CrCl (ml/min): 59
Vd coefficient (L/kg): 0.7
- Empiric Dosing
Initial / Loading Dose: 1500mg - administration pending
Maintenance Regimen: Vanc 1000mg Q24H starting 10/10 599
Estimated AUC (mcg*h/mL): 474
Estimated Peak (mcg*h/mL): 34.1
Estimated Trough (mcg/ml): 10
Estimated Half Life (H): 13
- Monitoring
No levels ordered at this time: consider levels in next few days
Pharmacokinetics Vancomycin I
- -
Patient Age: 64
Patient Sex: Female
Vancomycin Day #: 1
Indication: Skin And Soft Tissue
Requesting Provider: Dr. Jun Gottlieb
Pertinent Antimicrobial Allergies:
erythromycin - hives
penicillins - 'ended up in an oxygen tent'; cephalexin is ok
Height / Weight:
Height 5 ft 3 in
Actual Weight 58.173 kg
Pertinent Past Medical History: metastatic ovarian cancer
- Vital Signs / Lab Results
Temp Pulse Resp BP Pulse Ox
97.4 F 87 14 84/62 93
10/09/24 07:21 10/09/24 07:21 10/09/24 07:21 10/09/24 07:21 10/09/24 07:21
Lab Results - Hematology
10/08/24 10/09/24
16:31 06:14
WBC 18.8 H 14.6 H
Lab Results - Chemistry
10/08/24 10/09/24
16:31 06:14
BUN 23 H 23 H
Creatinine 0.9 0.8
Estimated Creat Clear 59
Albumin 4.3
10/08/24 10/09/24
22:07 01:45
Lactic Acid 1.3 Cancelled
Lab Results - Urine
10/09/24
02:22
Urine Nitrite (Reflex) Negative
Leukocyte Esterase Rfl Negative
Urine WBC (Reflex) 0-2
Ur Squamous Epith Cells 26-30
[2024-10-09] MEDS: VANCOCIN 530 MG IV (08:35)
[2024-10-09] MEDS: ProAmatine 5 MG PO (08:36)
[2024-10-09] MEDS: MOTRIN 400 MG PO ×2 (12:20→21:05)
--- NOTE | 2024-10-09 13:03 | W.PN.UPDATE ---
Update Note
Progress Note Update
Nonbillable note
Rule out sepsis -patient remains hypotensive despite 3 L of NS. Maintain on IV fluid with cautious monitoring for any signs of volume overload/pulmonary congestion. Midodrine dose provided.
Abdominal wall seroma -CT abdomen/pelvis questioning likely abdominal wall seroma. Discussed with primary plastic surgeon Dr. Kraft who is recommended interventional radiology guided aspiration/drain placement. [facility] has been consulted. Patient
currently on empiric vancomycin and cefepime, ID has been consulted for further help with antibiotics as well
Diarrhea - started after coming to ER, abx use related presuming. monitor and further testing if continues.
--- NOTE | 2024-10-09 13:58 | W.PN.UPDATE ---
Update Note
Progress Note Update
- 12F pigtail drain inserted into abdominal seroma with evacuation of >200 mL clear serous fluid.
- Drain orders placed.
- Given recurrence of this seroma, we can consider sclerosing before d/c
--- NOTE | 2024-10-09 14:38 | W.PN.UPDATE ---
Update Note
Progress Note Update
Plastic surgery note
Evaluated the patient at the bedside. Of note, she presented to my office yesterday with nausea vomiting and abdominal pain. She did not look well. She was concerned about recurrent fluid collection. Her abdomen appeared distended and I
recommend she be evaluated via CT scan. While recurrent seroma was certainly possible, I was concerned there was something else going on contributing to her symptoms.
IR drained the seroma today, large volume. Clear without evidence of purulence. Agree with sclerosis in the future
Leukocytosis to 18 downtrending on IV antibiotics
Endorses diarrhea
Infectious disease to weigh in
Appreciate everyone's help
[2024-10-09] MEDS: LOVENOX 40 MG SC (17:20)
--- NOTE | 2024-10-09 22:45 | CON.ID ---
Consultation
-
Date/Time Consultation Requested: September
Date/Time Consultation Performed: September
Requesting Provider: Dr Gottlieb
Performing Provider: Bisi Salinas MD
Reason for Consultation: Abdominal pain and leukocytosis with concern for seroma infection
Chief Complaint / Past History
Chief Complaint
abdominal pain and fever
History of Present Illness
The patient has a long history of recurring ovarian cancer and presents with abdominal pain with distension and nausea and vomiting. She also noted smaller stools than previously and her surgeon was concerned about obstruction. The patient has had
multiple abdominal surgeries associated with treatment of her ovarian cancer.There has been chemotherapy as well ass RT over the years.
.The patient was afebrile on admission with WBC 18.8with normal labs
The patient had blood cultures drawn and empiric antibiotic was started with Cefepime pending CT results and blood cultures.
Past History
Past Medical History: Venous Hypertension
Past Surgical History: Other (hysterectomy,multiple abdominal surgeries for ovarian cancer removal)
Allergy History:
carboplatin Allergy (Verified 07/24/24 09:58)
Anaphylaxis
erythromycin base Allergy (Verified 07/24/24 09:58)
Hives
Penicillins Allergy (Verified 07/24/24 09:58)
Keflex is ok
pollen extracts Allergy (Verified 07/24/24 09:58)
seasonal allergies
Medications Reviewed: Yes
Current Antibiotics:
cefepime
Social History
Tobacco: Former Smoker
Alcohol: Occasional
Drug: None
Living: Alone
Employment: Not Employed
Family History
Family History: Not Pertinent
Review of Systems
Review of Systems
General: Other (change in stool caliber)
Gasteroenterology: Other (abdominal pain)
Vital Signs
Temp Pulse Resp BP Pulse Ox
99.8 F 93 18 90/60 93
10/09/24 19:00 06/24/25 19:00 10/09/24 19:00 10/09/24 19:00 10/09/24 19:00
Physical Exam
Physical Exam
Constitutional: No Acute Distress, Comfortable and Non-toxic
Head: Normocephalic
Eyes: Pupils Equal, Pupils Round, No Conjunctival Hemorrhage and Sclera Anicteric
Pharynx: Benign
Oral: No Thrush and No Ulcers
Cardiovascular: Regular Rate
Pulmonary: Clear and Non Labored
Gastrointestinal: Soft, Tender, Distended, Decreased Bowel Sounds, No Rebound and No Guarding
Skin: Warm and Dry
Wound: Other (seroma draining clear liquid)
Neurological: Awake, Alert, Oriented and AO x 3
Psychological: Calm
Lines: PIV
Lab / Diagnostic Study Results
10/09/24 06:14
10/09/24 06:14
Abs Immat Gran (auto) 0.1 10^3/uL (0-0.05) H 10/08/24 16:31
Absolute Neuts (auto) 16.9 10^3/uL (1.4-6.5) H 10/08/24 16:31
Absolute Lymphs (auto) 0.7 10^3/uL (1.2-3.4) L 10/08/24 16:31
Absolute Monos (auto) 1.0 10^3/uL (0.1-0.6) H 10/08/24 16:31
Absolute Basos (auto) 0.1 10^3/uL (0-0.2) 10/08/24 16:31
Immature Gran % 0.6 % (0-0.5) H 10/08/24 16:31
Neutrophils % 89.9 % (42.2-75.2) H 10/08/24 16:31
Lymphocytes % 3.7 % (20.5-51.1) L 10/08/24 16:31
Monocytes % 5.3 % (1.7-9.3) 10/08/24 16:31
Eosinophils % 0.2 % (0-6) 10/08/24 16:31
Basophils % 0.3 % (0-2) 10/08/24 16:31
Lactic Acid Cancelled 10/09/24 01:45
Ur Squamous Epith Cells 26-30 /LPF (Few) 10/09/24 02:22
Microbiology Results
Micro:
10/09/24 13:30 Wound Culture - Pending
Abdomen Gram Stain - Preliminary
10/09/24 02:22 Blood Culture - Pending
Blood/Venous
10/09/24 02:22 Blood Culture - Pending
Blood/Venous
Assessment / Plan
1.Leukocytosis with abdominal pain,smaller stool caliber in setting of recurring ovarian cancer with seroma draining clear fluid and recent abdominal surgery
2. Empiric antibiotic started with Cefepime and cultures of fluid from seroma as well as blood cultures obtained and pending
4. CT abdomen ordered with findings of large mass suggestive of seroma but infection cannot be excluded
5. Likely tumor in small bowel RUQ as well as mass in the right pelvic side wall with lymphadenopathy,also mass in anterior pelvis which is likely metastatic implant
6. Findings from CT more suggestive of tumor but canot rule out inffection
Care Review
Plan reviewed with: Physician and Other Provider
Total Time Spent with Patient (in minutes): 55
[2024-10-10] MEDS: MAXIPIME 1000 MG IV ×4 (02:45→20:12)
[2024-10-10] MEDS: STERILE WATER FOR INJECTION 10 ML IV ×4 (02:45→20:13)
[2024-10-10] MEDS: MOTRIN 400 MG PO ×5 (02:53→23:09)
[2024-10-10 03:15] VITALS: BP 99/63
[2024-10-10 05:51] LABS: Hematocrit 33.3 % (37.0-47.0); Hemoglobin 11.6 g/dL (12.0-16.0); Mean Corp Hgb Conc. 34.8 g/dL (33.0-37.0); Mean Corpuscular Volume 94.6 fL (81.0-99.0); Mean Platelet Volume 9.4 fL (7.4-10.4); Platelet Count 316 10^3/uL (130-400); Red Blood Cell Count 3.52 10^6/uL (4.20-5.40); Red Cell Dist. Width 12.8 % (11.5-14.5); White Blood Cell Count 13.5 10^3/uL (4.8-10.8)
[2024-10-10 05:52] VITALS: BMI 22.8
[2024-10-10] MEDS: VANCOCIN 200 IV (05:57)
[2024-10-10 06:13] LABS: Blood Urea Nitrogen 15 mg/dl (7-17); Calcium 8.8 mg/dl (8.4-10.2); Carbon Dioxide 20 mmol/L (22-30); Chloride 108 mmol/L (98-107); Estimated Creatinine Clearance 67 ml/min; Glucose 107 mg/dl (70-99); Potassium 3.3 mmol/L (3.5-5.1); Sodium 135 mmol/L (135-145); eGFR > 60.00
[2024-10-10 07:30] VITALS: BP 103/70
[2024-10-10] MEDS: FEMARA 2.5 MG PO (08:20)
[2024-10-10] MEDS: THERAGRAN 1 TABLET PO (08:20)
[2024-10-10] MEDS: FLUSH (NSS) 2 FLUSH IV ×2 (08:21→13:49)
--- NOTE | 2024-10-10 10:56 | PHA.VAN.FU ---
Vancomycin Assessment / Plan
- Assessment
Renal Function: Stable
WBC's are: Stable
In the past 24 hrs, patient has been: Afebrile
Concomitant Antimicrobials: cefepime
- Dosing Plan
Continue: Vanc 1000mg Q24H
- Monitoring Plan
No level(s) ordered at this time: consider levels in next few days
- Follow Up
Pharmacy will continue to follow.
Vancomycin Follow UP
- -
Patient Age: 64
Patient Sex: Female
Vancomycin Day #: 2
Indication: Skin And Soft Tissue
Requesting Provider: Dr. Jun Gottlieb / Darlene Salinas
Pertinent Antimicrobial Allergies:
erythromycin - hives
penicillins - 'ended up in an oxygen tent'; cephalexin is ok
Height / Weight:
Height 5 ft 3 in
Actual Weight 58.315 kg
Pertinent Past Medical History: metastatic ovarian cancer
- Vital Signs / Lab Results
Temp Pulse Resp BP Pulse Ox
97.6 F 82 16 103/70 98
10/10/24 07:30 10/10/24 07:30 10/10/24 07:30 10/10/24 07:30 10/10/24 07:30
Lab Results - Hematology
10/08/24 10/09/24 10/10/24
16:31 06:14 05:27
WBC 18.8 H 14.6 H 13.5 H
Lab Results - Chemistry
10/08/24 10/09/24 10/10/24
16:31 06:14 05:27
BUN 23 H 23 H 15
Creatinine 0.9 0.8 0.7
Estimated Creat Clear 59 67
Albumin 4.3
10/08/24 10/09/24
22:07 01:45
Lactic Acid 1.3 Cancelled
Microbiology Results
10/09/24 13:30 Wound Culture - Preliminary
Abdomen No growth
Gram Stain - Preliminary
10/09/24 02:22 Blood Culture - Preliminary
Blood/Venous No Growth in 24 hours- Final report to follow
10/09/24 02:22 Blood Culture - Preliminary
Blood/Venous No Growth in 24 hours- Final report to follow
[2024-10-10 11:45] VITALS: BP 95/63
--- NOTE | 2024-10-10 13:25 | W.PN.HOSP.TC ---
Today's Communication/Plan
-
possible d/c pending ID recommendation for abx
Assessment / Plan
Assessment / Plan
1. Rule out sepsis -patient remains hypotensive despite 3 L of NS. Maintain on IV fluid with cautious monitoring for any signs of volume overload/pulmonary congestion. Midodrine dose provided.
2. Abdominal wall seroma -CT abdomen/pelvis questioning likely abdominal wall seroma. Discussed with primary plastic surgeon Dr. Kraft who is recommended interventional radiology guided aspiration/drain placement. Patient underwent drainage of
seroma with total output of 480 mL. Initial fluid studies Gram stain negative. Culture report pending. Patient on empiric vancomycin and cefepime.
Discussed patient demand to leave hospital today with plastic surgery and IRAD. IRAD had provided contact number for patient to call once drain dries out.
3. Diarrhea -patient did not voice any complaints of diarrhea today.
10/10 patient is demanded to be discharged and was upset that primary oncologist was not called. I have called Dr. Malone who will talk to the patient. Also discussed with patient that we are trying to rule out infection in the abdominal wall
collection, patient is convinced that there is no infection because everybody has said so. She is not willing to wait for the fluid culture to result.
Total time spent : 53 mins
Anticipated Discharge: Today
Subjective/Interval History
-
Date of Service: October 10, 2024
Patient denied of any issues right now
Denies abdominal pain/nausea/vomiting
Remains afebrile
Objective Data
-
Labs:
Laboratory Results
10/10/24
05:27
WBC 13.5 H
Hgb 11.6 L
Hct 33.3 L
Plt Count 316
Sodium 135
Potassium 3.3 L
Chloride 108 H
Carbon Dioxide 20 L
BUN 15
Creatinine 0.7
Glucose 107 H
Calcium 8.8
Vital Signs:
Vital Signs
Temp Pulse Resp BP Pulse Ox
97.6 F 85 16 95/63 97
10/10/24 11:45 10/10/24 11:45 10/10/24 11:45 10/10/24 11:45 10/10/24 11:45
I&O
10/09/24 10/10/24 10/11/24
06:59 06:59 06:59
Intake Total 490 / 490
Balance 490 / 490
Review of Systems
-
Respiratory: Reports No Symptoms
Cardiac: Reports No Symptoms
Abdomen/GI: Reports No Symptoms
Physical Exam
-
General: No Apparent Distress and Comfortable
HEENT: Negative Oxygen
Respiratory: Clear to Auscultation
Cardiac: Regular Rhythm and S1/S2; Negative Murmur or Rub
Musculoskeletal: No Edema
Neuro: Awake, Alert, Oriented, No Motor Deficits and Nonfocal/Grossly Intact
Psych: Calm
--- NOTE | 2024-10-10 15:46 | W.PN.ID1 ---
Date of Service
Date of Service: October 10, 2024
Today's Communication
Dr Evens Gottlieb, hospitalist who is aware of patient request, nurse,
Assessment / Plan
1.Leukocytosis with abdominal pain,smaller stool caliber in setting of recurring ovarian cancer with seroma draining clear fluid and recent abdominal surgery
2. Empiric antibiotic started with Cefepime/Vancomycin and cultures of fluid from seroma as well as blood cultures obtained and pending
3. Blood cultures with NGTD at 24 H, seroma fluid with NGTD
4. CT abdomen ordered with findings of large mass suggestive of seroma, but infection cannot be excluded, no intestinal obstruction was found
5. Likely tumor in small bowel RUQ as well as mass in the right pelvic side wall with lymphadenopathy,also mass in anterior pelvis which is likely metastatic implant
6. Findings from CT more suggestive of tumor, but cannot rule out infection
7. Patient labs improved on antibiotic with WBC decrease from 18.8 on admission to 13.5 currently , PMN 89.9 on admission, Platelets ( inflammatory marker ) 429 on admission currently 316
Consider blood cultures negative if NGTD at 48 H with current cultures with NGTD @ 24 H
Continue current antibiotic until tomorrow and if negative @ 48 H may D.C
8. Would call Dr Turcios, [facility] oncology on consultation for his opinion on current findings especially current CT findings which would best be discussed with patient by him or his oncology team prior to possible discharge
tomorrow
Chief Complaint
-: Leukocytosis (Patient with decreased WBC,plat after treatment with broad spectrum antibiotic)
Subjective / Review of Systems
Review of Systems: No Fever, No Chills, No Headache, No Pharyngitis, No Stiff Neck, No Swollen Lymph Nodes, No Cough, No Sputum Production, No Chest Pain, No Palpitations, No Nausea, No Vomiting, No Diarrhea and No Dysuria (some abdominal
discomfort,drain in place with clear fluid draining light yellow in color)
Vital Signs / Physical Exam
Vital Signs
Vital Signs
Temp Pulse Resp BP Pulse Ox
97.6 F 85 16 95/63 97
10/10/24 11:45 10/10/24 11:45 10/10/24 11:45 10/10/24 11:45 10/10/24 11:45
Physical Exam
Constitutional: No Acute Distress, Well Developed, Comfortable, Chronically Ill and Non-toxic
Head: Normocephalic
Eyes: Pupils Equal, Pupils Round, No Conjunctival Hemorrhage and Sclera Anicteric
Oropharyngeal: Benign
Cardiovascular: Regular Rate
Pulmonary: Clear and Non Labored
Gastrointestinal: Soft, Tender, Non Distended and Decreased Bowel Sounds (drain right lateral abdomen, minimal tenderness)
Genito-Urinary: Other (no edema with good ROM)
Skin: Warm and Dry
Wound: Other (recent seroma frainage with drain in place)
Neurological: Awake, Alert, Oriented and AO x 3
Psychological: Calm (anxious, requesting to have her oncology team consulted as it was Dr Turcios,[facility] oncology who has kept her going all these years with metastatic ovarian cancer and she respectfully requests to have him or his team called on
consultation to evaluate her )
Lines: PIV
Objective Data
Lab Data
Lab Results
10/10/24 05:27
10/10/24 05:27
Estimated Creat Clear 67 ml/min 10/10/24 05:27
Lactic Acid Cancelled 10/09/24 01:45
Total Bilirubin 0.5 mg/dl (0.2-1.3) 10/08/24 16:31
AST 33 U/L (14-36) 10/08/24 16:31
ALT 16 U/L (0-35) 10/08/24 16:31
Alkaline Phosphatase 105 U/L (38-126) 10/08/24 16:31
Most recent labs reviewed.
Microbiology: Report Reviewed
Micro Results:
10/09/24 13:30 Wound Culture - Preliminary
Abdomen No growth
Gram Stain - Preliminary
10/09/24 02:22 Blood Culture - Preliminary
Blood/Venous No Growth in 24 hours- Final report to follow
10/09/24 02:22 Blood Culture - Preliminary
Blood/Venous No Growth in 24 hours- Final report to follow
Chest X-Ray: Report Reviewed
CT Scan: Report Reviewed
Care Review
Plan reviewed with: Nurse, Physician and Other Provider
Total Time Spent with Patient (in minutes): 35
[2024-10-10 16:00] VITALS: BP 93/57
--- NOTE | 2024-10-10 16:56 | CM ---
CM met with Anika Aviles at bedside earlier today. She lives alone in a 2 story [facility] with 3 entry steps. Powder room on the first level, full bath on the second level. [facility] [employer] pt reports that she has been (I) amb and adls.
Plan: CM to follow to coordinate discharge planning needs as identified during hospitalizaiton
[2024-10-10] MEDS: LOVENOX 40 MG SC (17:56)
[2024-10-10 19:30] VITALS: BP 84/52
[2024-10-10 23:33] VITALS: BP 93/60
[2024-10-11] MEDS: STERILE WATER FOR INJECTION 10 ML IV (02:36)
[2024-10-11] MEDS: MAXIPIME 1000 MG IV (02:36)
[2024-10-11 03:12] VITALS: BP 106/70
[2024-10-11] MEDS: VANCOCIN 200 IV (06:10)
[2024-10-11 06:13] LABS: Hematocrit 33.2 % (37.0-47.0); Hemoglobin 11.6 g/dL (12.0-16.0); Mean Corp Hgb Conc. 34.9 g/dL (33.0-37.0); Mean Corpuscular Hgb 32.8 pg (27.0-31.0); Mean Corpuscular Volume 93.8 fL (81.0-99.0); Mean Platelet Volume 9.5 fL (7.4-10.4); Platelet Count 287 10^3/uL (130-400); Red Blood Cell Count 3.54 10^6/uL (4.20-5.40); Red Cell Dist. Width 12.7 % (11.5-14.5); White Blood Cell Count 10.1 10^3/uL (4.8-10.8)
[2024-10-11 06:21] VITALS: BMI 22.6
[2024-10-11 06:41] LABS: Blood Urea Nitrogen 14 mg/dl (7-17); Carbon Dioxide 21 mmol/L (22-30); Chloride 112 mmol/L (98-107); Estimated Creatinine Clearance 67 ml/min; Glucose 104 mg/dl (70-99); Potassium 3.2 mmol/L (3.5-5.1); Sodium 138 mmol/L (135-145); eGFR > 60.00
[2024-10-11 07:30] VITALS: BP 93/61
[2024-10-11] MEDS: THERAGRAN 1 TABLET PO (07:41)
[2024-10-11] MEDS: FEMARA 2.5 MG PO (07:41)
[2024-10-11] MEDS: MOTRIN 400 MG PO (07:44)
--- NOTE | 2024-10-11 07:47 | VATNOTE ---
During routine assessment of PIV site, area of skin proximal to the insertion site was red and swollen. Pt described an itchy sensation at that site. PIV site removed and heat applied to arm. Discussed need for new PIV with PCN, states that pt is
likely for discharge today and will be switched to PO antibiotics for discharge. PCN to contact MD to see if we can switch to PO antibiotics now. PCN to contact VAT if pt needs new IV site.
[2024-10-11] MEDS: MAXIPIME IV ×2 (08:47→11:17)
[2024-10-11] MEDS: STERILE WATER FOR INJECTION IV ×2 (08:48→11:17)
[2024-10-11] MEDS: KCL 20 MEQ PO (11:22)
[2024-10-11 11:45] VITALS: BP 106/74
--- NOTE | 2024-10-11 12:18 | W.PN.ID1 ---
Date of Service
Date of Service: October 11, 2024
Today's Communication
likely discharge today
Assessment / Plan
1.Leukocytosis with abdominal pain,smaller stool caliber in setting of recurring ovarian cancer with seroma draining clear fluid and recent abdominal surgery for seroma drainage by plastic surgery
2. Empiric antibiotic started with Cefepime/Vancomycin and cultures of fluid from seroma as well as blood cultures obtained and pending
3. Blood cultures with NGTD at 24 H, seroma fluid with NGTD
4. CT abdomen ordered with findings of large mass suggestive of seroma, but infection cannot be excluded, no intestinal obstruction was found
5. Likely tumor in small bowel RUQ as well as mass in the right pelvic side wall with lymphadenopathy,also mass in anterior pelvis which is likely metastatic implant
6. Findings from CT more suggestive of tumor, but cannot rule out infection
7. Patient labs improved on antibiotic with WBC decrease from 18.8 on admission to 13.5 currently , PMN 89.9 on admission, Platelets ( inflammatory marker ) 429 on admission currently 316
Consider blood cultures negative if NGTD at 48 H with current cultures with NGTD @ 24 H
Continue current antibiotic until tomorrow and if negative @ 48 H may D.C
8. Dr Turcios, [facility] oncology will follow up out patient patient will attempt to see him NEXT WEEK for follow up including current CT findings
9. Will complete empiric antibiotic dose with oral antibiotic in setting of response of leukocytosis to Cefepime
All cultures with NGTD
Cefdinir 300 mg po Q12 H for 5 days
Chief Complaint
-: Leukocytosis (Patient with decreased WBC,plat after treatment with broad spectrum antibiotic)
Subjective / Review of Systems
Review of Systems: No Fever, No Chills, No Headache, No Pharyngitis, No Stiff Neck, No Swollen Lymph Nodes, No Cough, No Sputum Production, No Chest Pain, No Palpitations, No Abdominal Pain, No Nausea, No Vomiting, No Diarrhea, No Dysuria, No Joint
Pain and No Skin Rash (drain in place right lower abd with minimal serous drainage )
Vital Signs / Physical Exam
Vital Signs
Vital Signs
Temp Pulse Resp BP Pulse Ox
99.0 F 82 16 93/61 96
10/11/24 07:30 10/11/24 07:30 10/11/24 07:30 10/11/24 07:30 10/11/24 07:30
Physical Exam
Constitutional: No Acute Distress, Well Developed, Comfortable, Chronically Ill and Non-toxic (feeling better and eager to return to work)
Head: Normocephalic
Eyes: Pupils Equal, Pupils Round, No Conjunctival Hemorrhage and Sclera Anicteric
Oropharyngeal: Benign
Cardiovascular: Regular Rate
Pulmonary: Clear and Non Labored
Gastrointestinal: Soft, Non Tender, Non Distended, Decreased Bowel Sounds, No Rebound and No Guarding (drain in place with patient asking fot tube extedion so that she can secure it under her clothing when she returns to work.inimal light yellow
serous drainage)
Skin: Warm and Dry
Wound: None
Neurological: Awake, Alert, Oriented, AO x 3 and No Motor Deficits (interactive and conversant)
Psychological: Calm (appropriate)
Lines: Port
Objective Data
Lab Data
Lab Results
10/11/24 05:47
10/11/24 05:47
Estimated Creat Clear 67 ml/min 10/11/24 05:47
Lactic Acid Cancelled 10/09/24 01:45
Total Bilirubin 0.5 mg/dl (0.2-1.3) 10/08/24 16:31
AST 33 U/L (14-36) 10/08/24 16:31
ALT 16 U/L (0-35) 10/08/24 16:31
Alkaline Phosphatase 105 U/L (38-126) 10/08/24 16:31
Most recent labs reviewed.
Microbiology: Report Reviewed (leukocytosis responded to antibiotic drainage of seroma with all cultures with NGTD)
Micro Results:
10/09/24 13:30 Wound Culture - Final
Abdomen No growth
Gram Stain - Final
10/09/24 02:22 Blood Culture - Preliminary
Blood/Venous No Growth in 48 hours- Final report to follow
10/09/24 02:22 Blood Culture - Preliminary
Blood/Venous No Growth in 48 hours- Final report to follow
CT Scan: Report Reviewed
Care Review
Plan reviewed with: Physician
Total Time Spent with Patient (in minutes): 35
--- NOTE | 2024-10-11 13:15 | PTCARENOTE ---
Redness/swelling R forearm at previous IV site improving. Teaching done w/ LISBETH franks - pt has had several in past and comfortable using. Pt very anxious to leave - d/c order in.
--- NOTE | 2024-10-11 13:48 | W.PN.HOSP.TC ---
Addendum entered and electronically signed by Evens Gottlieb MD 10/14/24 13:52:
Abdominal wall seroma is related to a recent surgery
Addendum entered and electronically signed by Evens Gottlieb MD 10/11/24 13:58:
Abx script damage inside adjuster per ID recommendation - Cefdinir 300mg xq12h script sent.
Original Note:
Today's Communication/Plan
-
d/c home
Assessment / Plan
Assessment / Plan
1. Rule out sepsis -patient remains hypotensive despite 3 L of NS. Maintain on IV fluid with cautious monitoring for any signs of volume overload/pulmonary congestion. Midodrine dose provided.
2. Abdominal wall seroma -CT abdomen/pelvis questioning likely abdominal wall seroma. Discussed with primary plastic surgeon Dr. Kraft who is recommended interventional radiology guided aspiration/drain placement. Patient underwent drainage of
seroma with total output of 480 mL. Initial fluid studies Gram stain negative.
Discussed patient demand to leave hospital today with plastic surgery and IRAD. IRAD had provided contact number for patient to call once drain dries out.
Fluid culture result No growth so far
Adjusted abx to oral ceftin 500mg bid x 7 days,. await ID recommendation if would prefer something different.
3. Diarrhea -patient did not voice any complaints of diarrhea today.
10/10 patient is demanded to be discharged and was upset that primary oncologist was not called. I have called Dr. Malone who will talk to the patient. Also discussed with patient that we are trying to rule out infection in the abdominal wall
collection, patient is convinced that there is no infection because everybody has said so. She is not willing to wait for the fluid culture to result.
10/11 patient had threatened to leave AMA. Unable to get hold of ID for final recommendation. As well as discussion with ID I am discharging patient on Ceftin 7-day course.
More than 30 minutes spent in discharge including
Final examination of the patient
Summarizing hospital stay
Instructions for continuing care to all relevant caregivers
Preparation of discharge records, prescriptions, and referral forms
Total time spent (in minutes): 39 mins
Anticipated Discharge: Today
Subjective/Interval History
-
Date of Service: October 11, 2024
doing better
no issues overnight
remains afebrile
Objective Data
-
Labs:
Laboratory Results
10/11/24
05:47
WBC 10.1
Hgb 11.6 L
Hct 33.2 L
Plt Count 287
Sodium 138
Potassium 3.2 L
Chloride 112 H
Carbon Dioxide 21 L
BUN 14
Creatinine 0.7
Glucose 104 H
Calcium 9.0
Vital Signs:
Vital Signs
Temp Pulse Resp BP Pulse Ox
97.8 F 90 16 106/74 99
10/11/24 11:45 10/11/24 11:45 10/11/24 11:45 10/11/24 11:45 10/11/24 11:45
I&O
10/10/24 10/11/24 10/12/24
06:59 06:59 06:59
Intake Total 490 / 490 2139
Output Total 50 / 50 30 / 30
Balance 490 / 440 2089 -30 / -30
Review of Systems
-
Respiratory: Reports No Symptoms
Cardiac: Reports No Symptoms
Abdomen/GI: Reports No Symptoms
Physical Exam
-
General: No Apparent Distress and Comfortable
HEENT: Negative Oxygen
Respiratory: Clear to Auscultation
Cardiac: Regular Rhythm and S1/S2; Negative Murmur or Rub
GI: Other (LISBETH drain in midline- sero sanguionous drainage)
Neuro: Awake, Alert, Oriented, No Motor Deficits and Nonfocal/Grossly Intact
Psych: Calm
--- NOTE | 2024-10-12 16:29 | PN.CDI ---
CDI
- -
CDI:
Physician Documentation Request
Admit Date: 10/09/24 12:09
Dear Doctor Bull,
Patient admitted with abdominal wall seroma.
10/09 CT abdomen/ pelvis, 'Large collection in the anterior abdominal and pelvic wall, likely a seroma from recent surgery.'
10/11 PN,'Abdominal wall seroma -CT abdomen/pelvis questioning likely abdominal wall seroma. Discussed with primary plastic surgeon Dr. Kraft who is recommended interventional radiology guided aspiration/drain placement. Patient underwent drainage
of seroma with total output of 480 mL. Initial fluid studies Gram stain negative.
Please provide in your note the following:
Abdominal wall seroma is related to a recent surgery
Abdominal wall seroma is not related to a recent surgery but is new this admission
Other
Use of terms such as suspected, likely, concern for, or probable (associated with a specific diagnosis that is being evaluated, monitored, or treated as if it exists) are acceptable and can be coded in the inpatient setting, when documented at the
time of discharge.
Thank you,
Donna SAENZN,RN,CCDS
CDI Specialist
Available via [place] text
Please use your independent medical judgment in providing your response.
--- NOTE | 2024-10-12 16:50 | W.DCSUMMARY ---
Discharge Summary
Discharge Data
Date of Admission: 10/09/24
Date of Discharge: 10/11/24
-
Pending Results: No
Hospital Course
Discharging Physician : Dr Evens Gottlieb
Disposition : To home
Primary care physician : Dr Daylin Christensen
Principal Discharge diagnosis :
Abdominal wall/surgical site large seroma
Diarrhea from antibiotic use
Chronic Discharge diagnosis :
History of metastatic ovarian cancer
History of total abdominal hysterectomy
History of multiple abdominal surgery for ovarian cancer resection
Essential hypertension
Hospital Course :
Patient is a 64-year-old female with no mentioned past medical history was sent from plastic surgeons office after patient was noted to having abdominal distention. Clinically there was concern of patient having possibly new developing ileus and a
CT abdomen pelvis done in the ER which showed a large seroma at abdominal surgical site. Of note patient had undergone an abdominal wall met resection in July by plastic surgeon. Patient was noted to be hypotensive with leukocytosis on blood
work. Clinically there was concern about viral infection in seroma cavity. Patient was started on broad-spectrum antibiotics and ID was involved in care. Primary oncologist and plastic surgeons evaluated patient as well. Patient underwent an
interventional radiology guided drainage of seroma with drain placement. Drain studies did not have any bacterial growth till discharge today. Patient had appropriate response to empiric antibiotics with improvement in lab abnormalities. At
discharge patient was transition to oral cephalosporin course. Patient to follow-up with primary [employer] oncologist in the office. Patient has been discharged with drain in place and provided contact number to call interventional radiology once
drainage decreases less than 10 cc. Patient was discharged to home after this.
Important imaging findings :
None
Procedure findings :
None
Discharge Plan
-
Patient Disposition: Home (Routine Discharge)
Discharge Diagnosis/Procedures: Abdominal wall seroma vs infected collection
Condition: Fair
Diet: Regular
Activity: As tolerated
Driving Restrictions: As prior to admission
Bathing Restrictions: OK to Shower
Activity Restrictions/Additional Instructions:
Call [facility] when LISBETH drain drainage is 10 cc or less for 24hrs -
Referrals:
Daylin Christensen DO [Family Provider, [facility]] - in one week
Wan Kraft MD [Active, Plastic Surgery]
Prescriptions:
New
cefdinir 300 mg capsule
300 mg PO Q12H Qty: 10 0RF
Continued
multivitamin Tablet
1 tab PO DAILY
ibuprofen 400 mg Tablet
400 mg PO Q6H PRN (Reason: pain)
letrozole 2.5 mg Tablet
2.5 mg PO DAILY
melatonin 5 mg Tablet
5 mg PO HS PRN (Reason: sleep)
Held
chlorthalidone 25 mg Tablet
25 mg PO DAILY
Hold Instructions: Resume on 10/15/24.
spironolactone 25 mg Tablet
25 mg PO DAILY
Hold Instructions: Resume on 10/15/24.
losartan 100 mg Tablet
50 mg PO DAILY
Hold Instructions: Resume on 10/15/24.
Discharge Orders:
Discharge Patient (As Directed); Ordered 10/11/24
Ordered By: Evens Gottlieb
Discharge Date and Time
Discharge Date/Time: 10/11/24 13:19
Print Language: TONGAN
== END 2024-10-11 13:19 | disposition home or self-care (01) | DRG 921 ==
LOC: 3 WEST ACU 12:09
PROVIDERS: Emergency Medicine; Physician Assistant; ADMITTING PHYSICIAN Internal Medicine; ATTENDING PHYSICIAN Hospitalist; EMERGENCY PHYSICIAN Emergency Medicine; FAMILY PHYSICIAN Family Medicine; OTHER PHYSICIAN Hospitalist
DX: L76.34 Postprocedural seroma of skin and subcutaneous tissue following other procedure (principal); Z85.43 Personal history of malignant neoplasm of ovary; Z90.49 Acquired absence of other specified parts of digestive tract; D72.829 Elevated white blood cell count, unspecified; E86.0 Dehydration; I10 Essential (primary) hypertension; Z87.891 Personal history of nicotine dependence; Z90.710 Acquired absence of both cervix and uterus; Z92.21 Personal history of antineoplastic chemotherapy
CPT/HCPCS: 10030; 74177; 80048; 80053; 81003; 81015; 83605; 83690; 83735; 85025; 85027; 87040; 87070; 87205; 96361; 96374; 96375; 99285; Q9967

== ENCOUNTER → 2024-11-01 09:13 | Outpatient (REF) | payer OTHER, SELFPAY ==
[2024-11-01 09:32] VITALS: BP 132/83; BP_SYST 82
--- NOTE | 2024-11-01 10:51 | W.PN.UPDATE ---
Update Note
Progress Note Update
64 yo female s/p IR drain placement for Post -op seroma on 10/09/24. There has been less than 10cc output for about 1 week. Pt came in today for possible sclerosing of the cavity. Bedside US performed and there was no residual collection. Case d/w
Dr. Kraft and drain was removed at bedside.
== END ==
LOC: RADI 09:13
PROVIDERS: ATTENDING PHYSICIAN Surgery Plastic and Reconstructive Surgery; FAMILY PHYSICIAN Family Medicine
DX: Z46.82 Encounter for fitting and adjustment of non-vascular catheter (principal); L76.34 Postprocedural seroma of skin and subcutaneous tissue following other procedure; Y83.8 Other surgical procedures as the cause of abnormal reaction of the patient, or of later complication, without mention of misadventure at the time of the procedure
CPT/HCPCS: 76705

== ENCOUNTER → 2024-11-12 11:59 | Outpatient (REF) | payer OTHER, SELFPAY | LOC: PET 11:59 | PROVIDERS: ATTENDING PHYSICIAN Obstetrics & Gynecology Gynecologic Oncology | DX: C56.1 Malignant neoplasm of right ovary (principal) | CPT/HCPCS: 78815; A9552 ==